=== PATIENT | male | born 1990 | race African-American/Black ===

== ENCOUNTER 2020-02-22 20:22 | Emergency (ER) | payer OTHER ==
[~2020-02-22] VITALS: Ht 177.8 cm; Wt 105.7 kg
[~2020-02-22 20:22] MED LIST: DOXYCYCLINE HY100 M3 PO; TRINATE TABLET1 TAB PO; VITAMIN B-1100 M1 PO
[2020-02-22] MEDS ORDERED: ABILIFY 2 MG2 M1 PO (20:33)
[2020-02-22 21:23] LABS: ANION GAP 9 mmol/L (7-16); BUN 7 mg/dL (7-18); CALCIUM 8.5 mg/dL (8.5-10.1); CHLORIDE 101 mmol/L (98-107); CO2 26 mmol/L (21-32); GLUCOSE 90 mg/dL (74-106); POTASSIUM 4.5 mmol/L (3.5-5.1); SODIUM 136 mmol/L (136-145)
[2020-02-22 21:28] LABS: ALBUMIN 3.7 g/dL (3.4-5.0); SALICYLATE 7.3 mg/dL (2.8-20.0); SGOT 26 U/L (15-37); SGPT 28 U/L (30-65); TOTAL BILIRUBIN 0.4 mg/dL (<0.1-1.0)
[2020-02-22 21:52] LABS: BASOPHILS 1.2 % (0.0-2.0); EOSINOPHILS 5.5 % (0.0-3.0); HEMATOCRIT 45.8 % (42.0-52.0); HEMOGLOBIN 15.5 gm/dL (14.0-18.0); LYMPHOCYTES 32.9 % (24.0-44.0); MCH 31.4 pg (26.0-34.0); MCHC 33.8 g/dL (28.0-37.0); MCV 92.7 fL (80.0-100.0); MONOCYTES 8.7 % (1.0-8.0); PLATELET COUNT 242 thou/uL (150-400); POLYS 51.7 % (36.0-66.0); RBC 4.93 mil/uL (4.50-6.00); RDW 14.6 % (10.5-14.5); WBC 5.8 thou/uL (4.0-11.0)
[2020-02-22 22:17] LABS: URINE BILIRUBIN NEGATIVE (Negative); URINE BLOOD NEGATIVE (Negative); URINE CLARITY CLEAR; URINE COLOR YELLOW; URINE GLUCOSE-RANDOM* NEGATIVE (Negative); URINE KETONES NEGATIVE (Negative); URINE LEUKOCYTES-REFLEX TRACE (Negative); URINE NITRITE-REFLEX NEGATIVE (Negative); URINE PROTEIN (DIPSTICK) NEGATIVE (Negative); URINE SPECIFIC GRAVITY 1.025 (1.005-1.035); URINE UROBILINOGEN 0.2 E.U./dl (0.2-1.0)
[2020-02-22 22:27] LABS: AMP/METHAMP Negative (Negative); BARBITURATES Negative (Negative); BENZODIAZEPINES Negative (Negative); COCAINE Negative (Negative); METHADONE Negative (Negative); OPIATES Negative (Negative); PCP POSITIVE (Negative)
[2020-02-23 03:21] VITALS: BP 114/39
--- NOTE | 2020-02-23 09:59 | EKG ---
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
== END 2020-02-23 03:22 | disposition home or self-care (01) ==
LOC: ER 20:22
PROVIDERS: Emergency Medicine
DX: R45.851 Suicidal ideations (principal); M79.89 Other specified soft tissue disorders; Z76.5 Malingerer [conscious simulation]; Z59.0 Homelessness; R45.850 Homicidal ideations; F19.90 Other psychoactive substance use, unspecified, uncomplicated; Z88.8 Allergy status to other drugs, medicaments and biological substances; Z79.899 Other long term (current) drug therapy

== ENCOUNTER 2021-06-08 21:09 | Emergency (ER) | payer OTHER ==
[~2021-06-08] VITALS: Ht 177.8 cm; Wt 54.4 kg
--- NOTE | ~2021-06-08 | EMS ---
[place] [id number] EMS Patient Care Report Name: SARIAH DAVIS JR Room #: DEP MARY Cardoso#: [id number] Admission: 06/08/21 Attend Phys: Discharge: 06/09/21 Date of : [birth year] Report #: [id number] THIS REPORT FOR: //name// Report Transmitted: 06/12/2021 10:14 EMS Care Summary [place], [place]/[facility] Incident [id number] @ 06/08/2021 20:40 Incident Location [address] Patient SARIAH DAVIS Male, 31 Years 1990 Patient Address [address] [place] [address] Patient History Substance Abuse,Schizophrenia,Alcohol Abuse, Patient Allergies Haldol, Patient Medications None Reported, Chief Complaint FOOT PAIN Disposition Transported No Lights/[place] Dispatch Reason Sick Person Transported To [facility] Narrative SCENE: ON ARRIVAL PT FOUND STANDING OUT FRONT OF ADDRESS PROVIDED. PT IS AWAKE AND ALERT WITH A GCS OF 15. [facility] ON SCENE. PT C/O BILATERAL FOOT PAIN. PT ASSISTED INTO EMS STRETCHER. [place] [id number] EMS Patient Care Report Name: SARIAH DAVIS JR Room #: DEP [facility]#: [id number] Admission: 06/08/21 Attend Phys: Discharge: 06/09/21 Date of : [birth year] Report #: [id number] AMBULANCE: VITALS MONITORED. NO CHANGES. Initial Vitals @21:04P: 118,R: 20,BP: 162/98,Pain: 0/10,GCS: 15,Revised Trauma: 12, @20:55P: 110,R: 20,BP: 158/100,Pain: 0/10,GCS: 15,Revised Trauma: 12, Assessments @20:53MENTAL:No Abnormalities,SKIN:No Abnormalities,HEENT:Head/Face: No Abnormalities,Eyes: No Abnormalities,Neck/Airway: No Abnormalities,LUNG SOUNDS:General: No Abnormalities,Left Upper: No Abnormalities,Right Upper: No Abnormalities,Left Lower: No Abnormalities,Right Lower: No Abnormalities,ABDOMEN:General: No Abnormalities,Left Upper: No Abnormalities,Right Upper: No Abnormalities,Left Lower: No Abnormalities,Right Lower: No Abnormalities,PELVIS//GI:No Abnormalities,EXTREMITIES:Left Leg: Other,Right Leg: Other,Left Arm: No Abnormalities,Right Arm: No Abnormalities,PULSE:NEURO:No Abnormalities,@20:59MENTAL:No Abnormalities,SKIN:No Abnormalities,HEENT:Head/Face: No Abnormalities,Eyes: No Abnormalities,Neck/Airway: No Abnormalities,LUNG SOUNDS:General: No Abnormalities,Left Upper: No Abnormalities,Right Upper: No Abnormalities,Left Lower: No Abnormalities,Right Lower: No Abnormalities,ABDOMEN:General: No Abnormalities,Left Upper: No Abnormalities,Right Upper: No Abnormalities,Left Lower: No Abnormalities,Right Lower: No Abnormalities,PELVIS//GI:No Abnormalities,EXTREMITIES:Right Leg: Other,Left Leg: Other,Left Arm: No Abnormalities,Right Arm: No Abnormalities,PULSE:NEURO:No Abnormalities, Impression Extremity Pain Procedures @20:53ALS AssessmentResponse: UnchangedSucceeded Timeline 20:39,Call Received 20:39,Dispatch Notified 20:40,Dispatched 20:40,En Route 20:52,On Scene 20:53,At Patient 20:53,ALS Assessment,Response: UnchangedSucceeded, 20:55,BP: 158/100 M,PULSE: 110,RR: 20 R,SPO2: Ox,ETCO2: ,BG: ,PAIN: 0,GCS: 15, 20:57,Depart Scene 21:04,BP: 162/98 M,PULSE: 118,RR: 20 R,SPO2: Ox,ETCO2: ,BG: ,PAIN: 0,GCS: 15, 21:06,At Destination 21:18,Call Closed Disclaimer [address] [address] EMS Patient Care Report Name: RYANSARIAH [facility] [id number] Admission: 06/08/21 Attend Phys: Discharge: 06/09/21 Date of : [birth year] Report #: [id number] v1.1 Copyright 2020 [employer] This EMS Care Summary contains data elements from the applicable legal record (which may be displayed differently). It is designed to provide pertinent information for the following purposes: continuity of care, clinical quality, and state data reporting. The complete legal record is available to ED staff and administrators of the receiving hospital in [facility]'s Patient Tracker. All data is provided "as is."
[~2021-06-08 21:09] MED LIST changes: +ABILIFY 2 MG2 M1 PO
[2021-06-09 04:11] VITALS: BP 138/72
== END 2021-06-09 04:11 | disposition home or self-care (01) ==
LOC: ER 21:09
DX: F19.129 Other psychoactive substance abuse with intoxication, unspecified (principal); Z88.8 Allergy status to other drugs, medicaments and biological substances; Z88.9 Allergy status to unspecified drugs, medicaments and biological substances

== ENCOUNTER 2021-12-09 12:59 | Emergency (ER) | payer OTHER ==
[~2021-12-09] VITALS: Ht 177.8 cm; Wt 88.5 kg
--- NOTE | ~2021-12-09 | EMS ---
[address] [address] EMS Patient Care Report Name: SARIAH DAVIS Room #: DEP MARY Cardoso#: [id number] Admission: 12/09/21 Attend Phys: Discharge: 12/09/21 Date of : [birth year] Report #: [id number] THIS REPORT FOR: //name// Report Transmitted: 12/10/2021 08:46 EMS Care Summary [place], [place]/[facility] Incident [id number] @ 12/09/2021 12:28 Incident Location [address] [place] [address] Patient SARIAH DAVIS Male, 31 Years 1990 Patient Address [address] [place] [id number] Patient History Schizophrenia,Alcohol Abuse, Patient Allergies No known allergies, Patient Medications Abilify, Chief Complaint Cold hands and feet Disposition Transported No Lights/[place] Dispatch Reason Unknown Problem/Person Down Transported To [facility] Narrative Patient is sitting on outside steps upon EMS arrival. He asks to go to the er. When asked why he wants to go he states he is cold. He would like to be taken to [facility] Kayla [facility] Cait. After telling him EMS can not go that far to a nursing home, he asks to go to the ER. [facility] [address] [place] [address] EMS Patient Care Report Name: SARIAH DAVIS Room #: DEP ER Walker#: [id number] Admission: 12/09/21 Attend Phys: Discharge: 12/09/21 Date of : [birth year] Report #: [id number] Patient does not go in to detail regarding current and past medical history. He wishes to rest his eyes and sleep instead. En route he is transported with seatbelts secured. No changes. Care to RN. Initial Vitals @12:49P: 70,R: 16,BP: 130/70,Pain: 10/10,GCS: 15,Revised Trauma: 12, @12:53P: 100,R: 16,Pain: 8/10,GCS: 15, Assessments @12:47MENTAL:No Abnormalities,SKIN:HEENT:Head/Face: No Abnormalities,Neck/Airway: No Abnormalities,LUNG SOUNDS:General: No Abnormalities,ABDOMEN:General: No Abnormalities,PELVIS//GI:No Abnormalities,EXTREMITIES:Left Arm: No Abnormalities,Right Arm: No Abnormalities,Left Leg: No Abnormalities,Right Leg: No Abnormalities,PULSE:NEURO: Impression Extremity Pain Procedures @12:47 ALS Assessment Response: UnchangedSucceeded Timeline 12:26,Call Received 12:26,Dispatch Notified 12:28,Dispatched 12:29,En Route 12:46,On Scene 12:47,At Patient 12:47,ALS Assessment,Response: UnchangedSucceeded, 12:49,Depart Scene 12:49,BP: 130/70 M,PULSE: 70,RR: 16 R,SPO2: Ox,ETCO2: ,BG: ,PAIN: 10,GCS: 15, 12:53,BP: / M,PULSE: 100,RR: 16 R,SPO2: Ox,ETCO2: ,BG: ,PAIN: 8,GCS: 15, 13:04,At Destination 13:06,Call Closed Disclaimer v1.1 Copyright 2021 [employer] This EMS Care Summary contains data elements from the applicable legal record (which may be displayed differently). It is designed to provide pertinent information for the following purposes: continuity of care, clinical quality, and state data reporting. The complete legal record is available to ED staff and administrators of the receiving hospital in [employer]'s Patient Tracker. All data is provided "as is."
== END 2021-12-09 14:11 | disposition home or self-care (01) ==
LOC: ER 12:59
DX: T69.9XXA Effect of reduced temperature, unspecified, initial encounter (principal); Z88.8 Allergy status to other drugs, medicaments and biological substances; Z59.00 Homelessness unspecified